=== PATIENT | male | born 1960 | race Caucasian/White ===

== ENCOUNTER → 2020-08-21 01:50 | Outpatient (CLI) | payer OTHER, SELFPAY ==
[2020-08-21 19:34] LABS: SARS-CoV-2 RNA PCR Negative
== END ==
PROVIDERS: PCP Emergency Medicine; Visit Provider Internal Medicine Gastroenterology
DX: Z01.812 Encounter for preprocedural laboratory examination (principal); Z20.822 Contact with and (suspected) exposure to COVID-19
CPT/HCPCS: C9803; U0003; U0005

== ENCOUNTER 2020-08-24 00:35 | Day surgery (SDC) | payer OTHER, SELFPAY ==
[2020-08-10 14:53] VITALS: BMI 28.4
[2020-08-24 10:59] VITALS: BP 115/67; PULSE 71; RESP 18; TEMP 36.9; O2SAT 98; BMI 28.4
[2020-08-24] MEDS: LACTATED RINGERS 1,000 ML 150 ML IV CONT (11:06)
--- NOTE | 2020-08-24 11:31 | WPDANESEPPF ---
Anes - Initial Pre Proc Eval Procedure: Operation Date: 08/24/20 11:45 Proposed Procedures p Esophagogastroduodenoscopy - Zack Mojica MD Date/Time: 08/24/20 11:31 Surgeon: Zack Mojica MD Pre Op Diagnosis: GERD Patient Data Age: 60 Gender: M Height: 5 ft 6 in Weight: 79.9 kg Last Vital Signs Temp 98.4 F 08/24/20 10:59 Pulse 71 08/24/20 10:59 Resp 18 08/24/20 10:59 BP 115/67 08/24/20 10:59 Pulse Ox 98 08/24/20 10:59 Allergies Allergy/AdvReac Type Severity Reaction Status Date / Time No Known Allergies Allergy Verified 08/24/20 10:58 Home Medications Medication Instructions Recorded Confirmed Type omeprazole 40 mg PO DAILY 08/10/20 08/24/20 History rosuvastatin [Crestor] 10 mg PO DAILY 08/10/20 08/24/20 History telmisartan-hydrochlorothiazid 1 tablet PO DAILY 08/10/20 08/24/20 History [Micardis HCT] Patient hx anesthesia problems: none Family hx anesthesia problems: none [facility] Past Medical History Medical History (Updated 08/24/20 @ 11:22 by Obey Ferrer MD) Hyperlipidemia Hypertension Social History Social History Smoking status: Never smoker Substance use type: does not use Living arrangements: with family Spiritual care concerns: No Anes - Eval Final PreProcedure Day of Procedure 08/24/20 11:31 Patient weight: normal Heart: regular rate and rhythm Lungs: clear to auscultation Airway: Mallampati scale class II Neurological: alert and oriented Last oral intake: >/= 8 hours ASA classification: II Emergent: no Anesthetic plan: proceed Anesthesia type and monitoring: general GIVS and standard monitoring Informed Consent: The patient's anesthetic plan and its attendant risks and benefits were discussed with the patient/family/POA. Questions were solicited and answers provided to the satisfaction of the patient/family/POA.
--- NOTE | 2020-08-24 12:55 | PM.HPGS ---
History of Present Illness History of Present Illness Consent: Risks, benefits, and alternatives have been discussed and questions answered. Patient agrees to proceed with procedure. Chief complaint: GERD Narrative: Tree Awad Jr. is a 60 year old male with gerd controlled with omeprazole and also previous sofia Review of Systems Constitutional: Constitutional: Denies headache(s) and Denies weakness Eyes: Eyes: Denies blurry vision ENT: Reports Normal hearing present, Denies headache(s) and Denies neck pain Cardiovascular: Cardiovascular: Denies chest pain and Denies dyspnea Respiratory: Respiratory: Denies dyspnea Gastrointestinal: Gastrointestinal: Reports no additional gastrointestinal complaints Genitourinary: Genitourinary: Denies dysuria Musculoskeletal: Musculoskeletal: Denies neck pain Integumentary/Breasts: Skin/Breast: Denies dry skin Neurologic: Reports Normal hearing present, Denies headache(s) and Denies weakness Psychiatric: Psychiatric: Denies anxiety Endocrine: Endocrine: Denies change in body appearance Hematologic/Lymphatic: Hematologic/Lymphatic: Denies easy bleeding Allergic/Immunologic: Allergic/Immunologic: Denies urticaria PMFSH Past Medical History Medical History (Updated 08/24/20 @ 12:56 by Zack Mojica MD) GERD (gastroesophageal reflux disease) Hyperlipidemia Hypertension Social History Social History Smoking status: Never smoker Substance use type: does not use Living arrangements: with family Spiritual care concerns: No Meds Home Medications and Allergies Home Medications Medication Instructions Recorded Confirmed Type omeprazole 40 mg PO DAILY 08/10/20 08/24/20 History rosuvastatin [Crestor] 10 mg PO DAILY 08/10/20 08/24/20 History telmisartan-hydrochlorothiazid 1 tablet PO DAILY 08/10/20 08/24/20 History [Micardis HCT] Allergies Allergy/AdvReac Type Severity Reaction Status Date / Time No Known Allergies Allergy Verified 08/24/20 10:58 Vital Signs Vital Signs - 24 hr 08/24/20 10:59 Temperature 98.4 F Pulse Rate 71 Respiratory Rate 18 Blood Pressure 115/67 Pulse Oximetry 98 Exam Const: General: comfortable and no acute distress HENMT: General nose exam: Normal nares present Eyes: General: appearance normal, both eyes and all related structures Neck: Neck: no JVD Resp: Auscultation: clear to auscultation bilaterally Cardio: Rate: regular rate Rhythm: regular rhythm GI: Inspection: non-distended GI Palp: Yes Soft to palpation Skin: General skin exam: normal color Neuro: General: gait normal Speech: normal speech Extrem: General: normal to inspection Psych: Mental Status: mental status grossly normal Assessment and Plan Assessment and plan (1) GERD (gastroesophageal reflux disease): Code(s): K21.9 - Gastro-esophageal reflux disease without esophagitis Status: Acute Assessment and Plan: egd
[2020-08-24] MEDS: BENZOCAINE (*SP) 60 ML SPRAY CAN (HURRICAINE) 1 SPRAY MUCOUS MEM (13:00)
[2020-08-24 13:11] VITALS: BP 102/63; PULSE 72; RESP 18; O2SAT 98
[2020-08-24 13:21] VITALS: BP 105/60; PULSE 66; RESP 18; O2SAT 100
[2020-08-24 13:31] VITALS: BP 104/68; PULSE 69; RESP 18; O2SAT 100
== END 2020-08-24 13:46 | disposition home or self-care (01) ==
PROVIDERS: PCP Emergency Medicine; Visit Provider Internal Medicine Gastroenterology
PROC: 0DJ08ZZ Inspection of Upper Intestinal Tract, Via Natural or Artificial Opening Endoscopic (ICD-10-PCS; CPT 43235; principal; 2020-08-24 11:45)
DX: K21.9 Gastro-esophageal reflux disease without esophagitis (principal); K44.9 Diaphragmatic hernia without obstruction or gangrene; K29.50 Unspecified chronic gastritis without bleeding; I10 Essential (primary) hypertension; E78.5 Hyperlipidemia, unspecified
CPT/HCPCS: 43239; 88305; J2704; J7120